=== PATIENT | female | born 1990 | race Caucasian/White ===

== ENCOUNTER 2018-09-06 16:19 | Emergency (ER) | payer MEDICARE, SELFPAY ==
[2018-09-06 16:22] VITALS: BP 149/90; PULSE 110; RESP 18; TEMP 37.5; O2SAT 97
--- NOTE | 2018-09-06 16:32 | W.ED.GENAD ---
Discharge Plan Disposition Patient Disposition: HOME Condition: Stable Discharge Details Chief Complaint: GenMedical Clinical Impression: Influenza Primary Care Provider: Surekha Lopez ED Provider: Derick Pierson Home Meds and New Rx's Prescriptions: New oseltamivir [Tamiflu] 75 mg capsule 75 mg PO BID 5 Days Qty: 9 RF: 0 Discharge Instructions Instructions: Influenza (ED) Additional Instructions: Home to rest. Small, frequent sips of fluids to maintain hydration. Tylenol and/or ibuprofen as needed for aches, pains, fever. Take Tamiflu as prescribed. Follow-up with regular doctor if not improving in 3 days time Medical Decision Making 27-year-old female presents with cough, congestion, fever and chills at home. Persistent today and states that she presents due to concerns of family members at the [employer] that she attended. She is afebrile with a pulse of approximately 100, blood pressure 140s over 90s, 97% on room air, speaking in full sentences. Screening influenza test obtained and positive. Normal oxygenation. She is given acetaminophen tolerates liquids without difficulty. Will treat with Tamiflu. She is stable for outpatient management. HPI General Mode of arrival: ambulatory. Date/Time Provider Initiated Documentation: 09/06/18 16:20. Limitations to Documentation: no limitations. Information obtained by: patient and family. History of Present Illness 27 year old F presents to the emergency department with the chief complaint of Cough, congestion, fever for 2+ weeks time per, described as moderate, Quality is described as stabbing, and is localized to the chest. Patient reports no radiation. Patient started experiencing this day(s) and it has been constant. No relieving factors improve symptom(s), No exacerbating factors reported . Patient notes cough and fever/chills. Patient did receive the following treatments prior to arrival, none Related Data Home Medications Medication Instructions Recorded Confirmed oseltamivir [Tamiflu] 75 mg PO BID 5 Days #9 cap 09/06/18 Previous Rx's Medication Instructions Recorded oseltamivir [Tamiflu] 75 mg PO BID 5 Days #9 cap 09/06/18 Allergies Allergy/AdvReac Type Severity Reaction Status Date / Time No Known Allergies Allergy Unverified 09/06/18 16:24 General Stated Complaint: GenMedical OLIVIA: 3 Review of Systems Review of Systems 8 systems reviewed and otherwise negative PFSH Surgical History Repair of umbilical hernia Family History Mother No problems noted. Father Diabetes Social History Smoking/Tobacco Use Status: Never Exam Narrative Exam Narrative: GEN: awake, alert, oriented 3. Pleasant, well groomed, interactive. HEAD: Normocephalic, atraumatic ENT: Mucous membranes dry, oropharynx erythematous the well-leg, exudate or asymmetry, External ear exam unremarkable EYES: PERRL, EOMI NECK: Full ROM, no GERALDINE, no menigismus CHEST/RESP: Nontender, clear to auscultation bilateral, no wheeze/rhonchi/rales, cough noted CARDIOVASCULAR: Regular, borderline tachycardia, no murmur, rub argenis. 2+ Rad pulse bilateral ABDOMEN: Soft, nontender, no mass. +Bowel sounds EXT: Full ROM, no edema, no rash Neuro: Grossly normal neurologic exam, conversant, interactive. Psych: Speech fluent, thoughts congruent, affect normal Course Vital Signs Temperature 37.5 C 09/06/18 16:22 Pulse 110 H 09/06/18 16:22 Respiratory Rate 18 09/06/18 16:22 Blood Pressure 149/90 H 09/06/18 16:22 Pulse Oximetry 97 09/06/18 16:22 Temperature 37.5 C 09/06/18 16:22 Temperature Source Temporal Artery Scan 09/06/18 16:22 Pulse 110 H 09/06/18 16:22 Respiratory Rate 18 09/06/18 16:22 Respiratory Effort Non-Labored 09/06/18 16:25 Blood Pressure 149/90 H 09/06/18 16:22 Pulse Oximetry 97 09/06/18 16:22 Oxygen Delivery Method Room Air 09/06/18 16:22 Oxygen Flow Rate 0 09/06/18 16:22 Pain Level 5 09/06/18 16:22 Lab/Test Results Lab/Test Results: 09/06/18 16:23 Nasopharynx Influenza Types A,B Antigen - Pending
[2018-09-06] MEDS: Acetaminophen 500 MG TAB 1000 MG PO (16:36)
[2018-09-06] MEDS: Oseltamivir 75 MG CAP PO (17:13)
== END 2018-09-06 17:15 | disposition home or self-care (01) ==
PROVIDERS: Emergency Provider Emergency Medicine; PCP Family Medicine
DX: J11.1 Influenza due to unidentified influenza virus with other respiratory manifestations (principal)
CPT/HCPCS: 87449; 99283

== ENCOUNTER 2018-11-25 13:06 | Outpatient (REF) | payer MEDICARE, SELFPAY ==
--- NOTE | 2018-11-25 11:45 | PAPFT_PTH ---
PATIENT: Lakisha Meza [facility] U#:[id number] AGE/SX: 27/F ROOM: RE11/25/[address]: Rosenda Mcclendon : 1990 BED: DIS: 11/25/2018 SPEC #: [id number] RECD: 11/26/18 10:59 STATUS: JOHNATHAN REAnne #: [id number] BJORN: 11/25/18 11:[address]: Rosenda Mcclendon DEPT: [facility] Cytology RECD BY: Theresa Neal ENTERED: 11/26/18 11:00 SP TYPE: PAPFT OTHR DR: Surekha Lopez MD Tissues: 1 - CX/ENDOCX FOR PAP SMEARS Procedures: PAP THIN PREP/[facility] Screening Comments: [id number] (CHLAMYDIA/GC)
[2018-11-27 14:46] LABS: Chlamydia Result Negative; GC Result Negative; Specimen Description SEE COMMENTS
== END 2018-11-25 13:26 ==
LOC: NCHCN 13:06
PROVIDERS: PCP Family Medicine; Visit Provider Nurse Practitioner
DX: Z11.3 Encounter for screening for infections with a predominantly sexual mode of transmission (principal); Z12.4 Encounter for screening for malignant neoplasm of cervix
CPT/HCPCS: 87491; 87591; 88142

== ENCOUNTER 2020-04-04 15:42 | Emergency (ER) | payer MEDICARE, SELFPAY ==
[2020-04-04 15:46] VITALS: BP 127/84; PULSE 86; RESP 15; TEMP 36.4; O2SAT 96
[2020-04-04] MEDS: Lidocaine/Epinephri/Tetracaine Topical Gel 3 ML TP (16:02)
[2020-04-04] MEDS: Acetaminophen 500 MG TAB 1000 MG PO (16:02)
[2020-04-04] MEDS: Ibuprofen 600 MG TAB PO (16:02)
--- NOTE | 2020-04-04 16:06 | ED.GENADUL_ITS ---
Discharge Plan Disposition Patient Disposition: HOME Condition: Good Discharge Details Chief Complaint: Laceration Clinical Impression: Finger laceration Primary Care Provider: Rosenda Mcclendon ED Provider: Sandy Talbert Home Meds and New Rx's Prescriptions: No Action No Known Home Meds RF: 0 Discharge Instructions Instructions: Finger Laceration (ED), Skin Adhesive Care (ED) Additional Instructions: Keep wound clean, dry, covered. Tylenol and ibuprofen as needed for discomfort. Please allow the adhesive to come off naturally. Please not pick or pull at this. Please not apply any ointment over this as it may cause it to breakdown too early. Monitor for signs infection including redness warmth, drainage, increased pain, fever/chills. If you develop these or other new/worsening symptoms please seek care urgently once again. Otherwise, please follow-up with primary care as needed. Referrals: Rosenda Mcclendon [Primary Care Provider] - Discharge Data Discharge Date/Time-TO BE ENTERED AT DEPARTURE: 04/04/20 16:55 Medical Decision Making Patient is a pleasant 29-year-old [id number] female presents today for evaluation of laceration to left thumb. She reports that she cut herself accidentally while using scissors. Unknown tetanus status. Endorses numbness around the laceration. No active bleeding. Patient has a 1 cm superficial laceration over the pad of the distal phalanx of the left thumb. Patient is having difficulty with pain management. Will give Tylenol and ibuprofen. Also apply LET to help with discomfort allow for cleansing and irrigation of the wound. All patient is having some significant discomfort, the wound appears to be quite superficial with no deep structure involvement I do feel that it would be appropriate to closed with adhesive. I also feel that the patient would likely tolerate this better. Tetanus is up-to-date. Will update this today. Patient was reexamined, she does seem much calmer and less anxious at this time. Two-point discrimination is intact around and distal to the wound. No active bleeding. Wound was cleansed by nursing staff. Explored to base in a bloodless field. No foreign body debris was noted. Thin layer of adhesive was applied and remodeled approximated tissue edges. As the patient is so exquisitely uncomfortable, foam and metal splint was made to help reduce pain. Tetanus was updated today. Patient and I discussed care of adhesive and wound. She will return with signs of infection or other new/worsening symptoms. All of her questions and concerns were addressed and she is in agreement this plan. HPI General Mode of arrival: ambulatory . Date/Time Provider Initiated Documentation: 04/04/20 16:06 . Limitations to Documentation: no limitations . Information obtained by: patient and RN notes reviewed . History of Present Illness 29 year old F presents to the emergency department with the chief complaint of left thumb laceration, described as severe, with intensity rated at 10. Quality is described as stabbing, and is localized to the left and upper extremity. Patient reports no radiation. Patient started experiencing this minute(s) and it has been constant. No relieving factors improve symptom(s), No exacerbating factors reported . Patient notes no other symptoms.. Patient did receive the following treatments prior to arrival, none Related Data Home Medications Medication Instructions Recorded Confirmed Unknown [No Known Home Meds] 04/04/20 04/04/20 Allergies Allergy/AdvReac Type Severity Reaction Status Date / Time No Known Allergies Allergy Unverified 04/04/20 16:39 General Stated Complaint: Laceration OLIVIA: 4 Review of Systems Constitutional Constitutional: Reports as per HPI, Denies chills and Denies fever(s) Musculoskeletal Musculoskeletal: Reports as per HPI Integumentary/Breasts Skin/Breast: Reports as per HPI Neurologic Neurologic: Reports as per HPI, Denies sensory deficit and Denies paresthesias [facility] Surgical History Repair of umbilical hernia Family History (System 04/04/20 @ 16:39 by Hawa Martin) Mother No problems noted. Father Diabetes Social History Smoking/Tobacco Use Status: Never Alcohol Intake: never Drug use: Never Substance use type: does not use Do you feel safe at home: Yes Do you feel safe in your relationship?: Yes Exam Const General: cooperative, healthy appearing, comfortable, no acute distress and well developed Nutritional Appearance: average body habitus and well nourished Orientation: alert and awake Resp Effort & Inspection: normal respiratory effort, able to speak in complete sentences and no respiratory distress Cardio Rate: regular rate Rhythm: regular rhythm Skin Trauma: laceration (as drawn below) Neuro General: patient alert and patient awake Cognition: normal cognition Speech: speech normal Gait: normal gait Sensory Exam: no sensory deficits noted Extrem Hand/finger images: 1. 1cm laceration. SubQ tissue visualized. Deep structures appear to be intact. Appears fairly superficial. No surrounding erythema, warmth, drainage Psych Appearance: grossly normal and well kempt Mental Status: mental status grossly normal Speech and Movement: speech and movement normal Course Vital Signs Vital signs: Vital Signs Temperature 36.4 C L 04/04/20 15:46 Pulse 86 04/04/20 15:46 Respiratory Rate 15 04/04/20 15:46 Blood Pressure 127/84 04/04/20 15:46 Pulse Oximetry 96 04/04/20 15:46 Temperature 36.4 C L 04/04/20 15:46 Temperature Source Tympanic 04/04/20 15:46 Pulse 86 04/04/20 15:46 Respiratory Rate 15 04/04/20 15:46 Respiratory Effort Non-Labored 04/04/20 15:49 Blood Pressure 127/84 04/04/20 15:46 Blood Pressure Position Sitting 04/04/20 15:46 Pulse Oximetry 96 04/04/20 15:46 Oxygen Delivery Method Room Air 04/04/20 15:46 Oxygen Flow Rate 0 04/04/20 15:46 End Tidal Co2 10 04/04/20 15:46 Pain Level 04/04/20 16:02
[2020-04-04] MEDS: Tetanus & Diphtheria Tox,ADULT 0.5 ML VIAL IM (16:23)
== END 2020-04-04 16:55 | disposition home or self-care (01) ==
PROVIDERS: Emergency Provider Physician Assistant; PCP Nurse Practitioner
DX: S61.012A Laceration without foreign body of left thumb without damage to nail, initial encounter (principal); W27.2XXA Contact with scissors, initial encounter
CPT/HCPCS: 12001; 90471

== ENCOUNTER 2022-09-05 14:56 | Outpatient (REF) | payer MEDICARE, SELFPAY ==
[2022-09-05 15:18] LABS: Abs Immature Grans 0.01 10^3/uL (0.0-0.06); Absolute Basophil Count 0.02 10^3/uL (0.0-0.2); Absolute Eosinophil Count 0.09 10^3/uL (0.0-0.7); Absolute Lymphocyte Count 1.38 10^3/uL (1.2-3.4); Absolute Monocyte Count 0.28 10^3/uL (0.1-0.8); Absolute Neutrophil Count 4.16 10^3/uL (1.2-6.7); Basophils % 0.3; Eosinophils % 1.5; HCT 39.5 % (36.0-46.0); HGB 13.1 g/dL (11.2-15.7); Immature Grans % 0.2; Lymphocytes % 23.2; MCH 28.7 pg (27.0-33.0); MCHC 33.2 % (32.0-36.0); MCV 87 fL (80-95); MPV 9.8 fL (8.0-11.0); Monocytes % 4.7; Neutrophils % 70.1; Platelet Count 364 10^3/uL (130-400); RBC 4.56 10^6/uL (3.93-5.22); RDW 12.4 % (11.7-14.6); RDW-SD 39.5 fL; WBC 5.94 10^3/uL (4.4-10.8)
[2022-09-05 15:40] LABS: ALT 19 U/L (14-59); AST 16 U/L (15-37); Albumin 4.2 g/dL (3.4-5.0); Alkaline Phosphatase 84 U/L (46-116); Anion Gap 8.5 mmol/L (3-11); BUN 11 mg/dL (7-18); Bilirubin, Total 0.3 mg/dL (0.2-1.0); CO2 27.5 mmol/L (21.0-32.0); CREATININE 0.9 mg/dL (0.55-1.02); Calcium 9.6 mg/dL (8.5-10.1); Chloride 104 mmol/L (98-107); Estimated GFR 86.57 (mL/min/1.73m2); Glucose 109 mg/dL (74-106); Potassium 4.4 mmol/L (3.5-5.1); Sodium 140 mmol/L (136-145); TSH (W/Ref FT4) 7.16 uIU/mL (0.36-3.74); Total Protein 7.8 g/dL (6.4-8.2)
[2022-09-05 15:50] LABS: Iron 66 ug/dL (50-170); Total Iron Binding Capacity 329 ug/dL (250-450); Transferrin Sat 20 % (15-50)
[2022-09-05 16:30] LABS: FREE T4 0.77 ng/dL (0.76-1.46)
[2022-09-05 16:59] LABS: Vitamin B12 403 pg/mL (193-986)
== END 2022-09-05 14:57 | disposition home or self-care (01) ==
LOC: NCHCN 14:56
PROVIDERS: PCP Nurse Practitioner; Visit Provider Nurse Practitioner Family
DX: E23.0 Hypopituitarism (principal); R51.9 Headache, unspecified; F32.9 Major depressive disorder, single episode, unspecified; F41.9 Anxiety disorder, unspecified; N91.2 Amenorrhea, unspecified; Z83.3 Family history of diabetes mellitus
CPT/HCPCS: 80053; 82607; 83540; 83550; 84439; 84443; 85025

== ENCOUNTER 2022-11-18 16:08 | Outpatient (REF) | payer MEDICARE, SELFPAY ==
--- NOTE | 2022-11-18 16:10 | PAPFT_PTH ---
PATIENT: Lakisha Meza LOC: [facility] U#:[id number] AGE/SX: 31/F ROOM: RE11/18/[address]: Chitra Leal MD : 1990 BED: DIS: 11/18/2022 SPEC #: [id number] RECD: 11/18/22 18:19 STATUS: JOHNATHAN REQ #: [id number] BJORN: 11/18/22 16:[address]: Chitra Leal DEPT: [facility] Cytology RECD BY: Katherine Valenzuela ENTERED: 11/18/22 18:19 SP TYPE: PAPFT OTHR DR: Rosenda Mcclendon Tissues: 1 - CX/ENDOCX FOR PAP SMEARS Procedures: PAP THIN PREP/[facility] Screening HPV DNA PROBE Comments: [id number] (HPV 16 & 18/45) (CHLAMYDIA/GC)
== END 2022-11-18 16:09 | disposition home or self-care (01) ==
LOC: LBN 16:08
PROVIDERS: PCP Nurse Practitioner; Visit Provider Obstetrics & Gynecology
DX: Z11.3 Encounter for screening for infections with a predominantly sexual mode of transmission (principal); Z11.51 Encounter for screening for human papillomavirus (HPV); R87.810 Cervical high risk human papillomavirus (HPV) DNA test positive; Z01.411 Encounter for gynecological examination (general) (routine) with abnormal findings
CPT/HCPCS: 87491; 87591; 88142; 87624

== ENCOUNTER 2022-12-13 16:26 | Outpatient (REF) | payer MEDICARE, MEDICAID, SELFPAY ==
[2022-12-13 16:11] LABS: TSH (W/Ref FT4) 7.63 uIU/mL (0.36-3.74)
[2022-12-13 16:42] LABS: FREE T4 0.86 ng/dL (0.76-1.46)
== END 2022-12-13 16:27 | disposition home or self-care (01) ==
LOC: NCHCN 16:26
PROVIDERS: PCP Nurse Practitioner; Visit Provider Nurse Practitioner Family
DX: F41.8 Other specified anxiety disorders (principal); F32.89 Other specified depressive episodes; E23.0 Hypopituitarism; R51.9 Headache, unspecified
CPT/HCPCS: 84439; 84443

== ENCOUNTER 2023-02-10 02:38 | Outpatient (CLI) | payer OTHER, MEDICAID, SELFPAY ==
[2023-02-11 17:23] LABS: FSH 4.6 mIU/mL (See Note)
[2023-02-19 10:06] LABS: Testosterone, Free 0.88 ng/dL (<0.13-1.03); Testosterone, Total 49 ng/dL (8-60)
== END 2023-02-10 02:39 | disposition home or self-care (01) ==
LOC: LBO 02:38
PROVIDERS: PCP Nurse Practitioner; Visit Provider Obstetrics & Gynecology
DX: L68.9 Hypertrichosis, unspecified (principal); N91.5 Oligomenorrhea, unspecified
CPT/HCPCS: 36415; 84402; 84403; 83001; 84146

== ENCOUNTER 2023-02-27 18:57 | Outpatient (REF) | payer OTHER, MEDICAID, SELFPAY ==
[2023-02-27 19:22] LABS: TSH (W/Ref FT4) 4.77 uIU/mL (0.36-3.74)
[2023-02-27 19:41] LABS: FREE T4 0.92 ng/dL (0.76-1.46)
== END 2023-02-27 18:58 | disposition home or self-care (01) ==
LOC: NCHCN 18:57
PROVIDERS: PCP Nurse Practitioner; Visit Provider Nurse Practitioner Family
DX: R94.6 Abnormal results of thyroid function studies (principal)
CPT/HCPCS: 84439; 84443

== ENCOUNTER 2023-09-09 15:11 | Outpatient (REF) | payer OTHER, MEDICAID, SELFPAY ==
[2023-09-09 21:29] LABS: TSH (W/Ref FT4) 5.62 uIU/mL (0.36-3.74)
[2023-09-09 21:51] LABS: FREE T4 0.91 ng/dL (0.76-1.46)
== END 2023-09-09 15:12 | disposition home or self-care (01) ==
LOC: NCHCN 15:11
PROVIDERS: PCP Nurse Practitioner; Visit Provider Nurse Practitioner Family
DX: E03.9 Hypothyroidism, unspecified (principal)
CPT/HCPCS: 84439; 84443

== ENCOUNTER 2024-01-27 14:10 | Outpatient (REF) | payer OTHER, MEDICAID, SELFPAY ==
[2024-01-27 15:43] LABS: FREE T4 0.85 ng/dL (0.76-1.46); TSH 6.27 uIU/Ml (0.36-3.74)
== END 2024-01-27 14:11 | disposition home or self-care (01) ==
LOC: NCHCN 14:10
PROVIDERS: Visit Provider Nurse Practitioner Family
DX: E03.9 Hypothyroidism, unspecified (principal)
CPT/HCPCS: 84439; 84443

== ENCOUNTER 2024-04-29 15:50 | Outpatient (REF) | payer OTHER, MEDICAID, SELFPAY ==
[2024-04-29 19:59] LABS: HCT 41.8 % (36.0-46.0); MCH 29.4 pg (27.0-33.0); MCHC 33.5 % (32.0-36.0); MCV 88 fL (80-95); MPV 10.2 fL (8.0-11.0); Platelet Count 342 10^3/uL (130-400); RBC 4.77 10^6/uL (3.93-5.22); RDW 12.6 % (11.7-14.6); RDW-SD 40.6 fL; WBC 7.74 10^3/uL (4.4-10.8)
[2024-04-29 20:17] LABS: ALT 22 U/L (14-59); AST 24 U/L (15-37); Albumin 4.1 g/dL (3.4-5.0); Alkaline Phosphatase 81 U/L (46-116); Anion Gap 9.5 mmol/L (3-11); BUN 14 mg/dL (7-18); Bilirubin, Total 0.38 mg/dL (0.2-1.0); CO2 22.5 mmol/L (21.0-32.0); CREATININE 1.1 mg/dL (0.55-1.02); Calcium 9.7 mg/dL (8.5-10.1); Chloride 103 mmol/L (98-107); Glucose 81 mg/dL (74-106); Potassium 4.2 mmol/L (3.5-5.1); Sodium 135 mmol/L (136-145); Total Protein 8.5 g/dL (6.4-8.2)
[2024-04-29 20:18] LABS: Hemoglobin A1C 5.2 % (<5.7)
[2024-04-30 12:36] LABS: TSH (W/Ref FT4) 5.38 uIU/mL (0.36-3.74)
[2024-04-30 13:10] LABS: FREE T4 0.94 ng/dL (0.76-1.46)
== END 2024-04-29 15:51 | disposition home or self-care (01) ==
LOC: NCHCN 15:50
PROVIDERS: Visit Provider Nurse Practitioner Family
DX: N91.5 Oligomenorrhea, unspecified (principal); E03.9 Hypothyroidism, unspecified
CPT/HCPCS: 80053; 85027; 83036; 84439; 84443

== ENCOUNTER 2024-09-27 13:02 | Outpatient (REF) | payer MEDICARE, MEDICAID, SELFPAY ==
[2024-09-27 15:41] LABS: HGB 13.8 g/dL (11.2-15.7); MCH 29.2 pg (27.0-33.0); MCHC 32.9 % (32.0-36.0); MCV 89 fL (80-95); MPV 9.8 fL (8.0-11.0); Platelet Count 327 10^3/uL (130-400); RBC 4.73 10^6/uL (3.93-5.22); RDW 12.8 % (11.7-14.6); RDW-SD 41.9 fL; WBC 6.31 10^3/uL (4.4-10.8)
[2024-09-27 16:10] LABS: ALT 23 U/L (14-59); AST 18 U/L (15-37); Albumin 4.2 g/dL (3.4-5.0); Alkaline Phosphatase 73 U/L (46-116); Anion Gap 9.7 mmol/L (3-11); BUN 12 mg/dL (7-18); Bilirubin, Total 0.24 mg/dL (0.2-1.0); CO2 24.3 mmol/L (21.0-32.0); Calcium 9.6 mg/dL (8.5-10.1); Chloride 105 mmol/L (98-107); Estimated GFR 75.34 (mL/min/1.73m2); Glucose 97 mg/dL (74-106); Potassium 4.5 mmol/L (3.5-5.1); Sodium 139 mmol/L (136-145); TSH (W/Ref FT4) 6.65 uIU/mL (0.36-3.74); Total Protein 8.1 g/dL (6.4-8.2)
[2024-09-27 21:22] LABS: Hemoglobin A1C 5.3 % (<5.7)
[2024-09-28 02:37] LABS: FREE T4 0.77 ng/dL (0.76-1.46)
== END 2024-09-27 13:03 | disposition home or self-care (01) ==
LOC: NCHCN 13:02
PROVIDERS: Visit Provider Nurse Practitioner Family
DX: E03.9 Hypothyroidism, unspecified (principal); Z68.30 Body mass index [BMI] 30.0-30.9, adult; N91.5 Oligomenorrhea, unspecified
CPT/HCPCS: 80053; 85027; 83036; 84439; 84443

== ENCOUNTER 2024-10-21 14:56 | Outpatient (REF) | payer MEDICARE, MEDICAID, SELFPAY | END 2024-10-21 14:57 | disposition home or self-care (01) | LOC: LBN 14:56 | PROVIDERS: Visit Provider Obstetrics & Gynecology | DX: N94.9 Unspecified condition associated with female genital organs and menstrual cycle (principal); Z01.419 Encounter for gynecological examination (general) (routine) without abnormal findings | CPT/HCPCS: 87480; 87510; 87660 ==

== ENCOUNTER 2025-01-27 14:43 | Outpatient (REF) | payer MEDICARE, MEDICAID, SELFPAY ==
[2025-01-27 19:44] LABS: TSH (W/Ref FT4) 1.72 uIU/mL (0.36-3.74)
== END 2025-01-27 14:44 | disposition home or self-care (01) ==
LOC: NCHCN 14:43
PROVIDERS: PCP Nurse Practitioner Family; Visit Provider Nurse Practitioner Family
DX: E03.9 Hypothyroidism, unspecified (principal)
CPT/HCPCS: 84443

== ENCOUNTER 2025-08-03 15:32 | Outpatient (REF) | payer MEDICARE, MEDICAID, SELFPAY ==
[2025-08-03 16:52] LABS: Anion Gap 11.6 mmol/L (3-11); BUN 11 mg/dL (9-23); CO2 23.4 mmol/L (20.0-31.0); Calcium 9.7 mg/dL (8.3-10.6); Chloride 105 mmol/L (98-107); Glucose 89 mg/dL (74-106); Potassium 4.1 mmol/L (3.5-5.1); Sodium 140 mmol/L (136-145); TSH (W/Ref FT4) 3.16 uIU/mL (0.55-4.78)
[2025-08-03 16:55] LABS: Hemoglobin A1C 4.9 % (<5.7)
== END 2025-08-03 15:33 | disposition home or self-care (01) ==
LOC: NCHCN 15:32
PROVIDERS: PCP Nurse Practitioner Family; Visit Provider Nurse Practitioner Family
DX: Z00.00 Encounter for general adult medical examination without abnormal findings (principal)
CPT/HCPCS: 80048; 83036; 84443